=== PATIENT | male | born 1990 | race Caucasian/White ===

== ENCOUNTER 2018-06-06 07:10 | Emergency (ER) | payer BC, SELFPAY ==
[2018-06-06 07:11] VITALS: BP 153/96; PULSE 89; RESP 18; TEMP 36.5; O2SAT 98; BMI 31.5
--- NOTE | 2018-06-06 08:08 | CT_ITS ---
STUDY: CT BRAIN WITHOUT CONTRAST REASON FOR EXAM: Male, 28 years old. Dizziness and blurred vision. RADIATION DOSAGE (If Supplied By Facility): CTDIvol = ( 44.99 ) mGy, DLP = ( 796.11 ) mGycm TECHNIQUE: Transaxial CT imaging of the brain was performed without administration of intravenous contrast material. Individualized dose optimization techniques were used for this CT. COMPARISON: None. FINDINGS: Normal soft tissue structures. Normal calvarium. Normal size ventricles and extra-axial spaces for the patient's age. Normal white matter tracts of the cerebral hemispheres. Normal basal ganglia and thalami. Normal brainstem. Normal cerebellum. There is no intracranial hemorrhage. There are no findings of an acute ischemic infarction. Mucosal thickening of the ethmoid sinuses as well as the right maxillary sinus and sphenoid sinus. CT/Brain/Head without Contrast IMPRESSION: Sinusitis. Normal unenhanced CT scan of the brain. Electronically Signed: George Yancey MD at 9:10 EST , Service support ,
[2018-06-06] MEDS: 0.9% Normal Saline 1,000 ML 150 ML IV (08:58)
[2018-06-06 08:59] LABS: Absolute Lymphocyte Count 4.87 X10^3/ul (0.83-4.51); Absolute Neutrophil Count 6.5 X10^3/uL (2.0-7.7); Basophil# 0.03 X10^3/uL; Basophil% 0.2 % (0-1); Eosinophil# 0.19 X10^3/uL; Eosinophils% 1.5 % (0-5); Hematocrit 49.9 % (40-54); Hemoglobin 16.9 g/dl (13.0-16.5); Lymphocyte # 4.87 X10^3/ul (4.0); Lymphocyte % 38.4 % (19-41); Mean Corp Hgb Conc 33.9 g/gl (32-36); Mean Corpuscular Hgb 29.8 pg (27.0-32.0); Mean Platelet Vol. 9.6 fl (6.2-12.0); Monocyte# 1.01 X10^3/uL; Neutrophil # 6.53 X10^3/uL (2.7-7.7); Neutrophil % 51.5 % (47-70); POSITIVE COUNT NO; POSITIVE DIFFERENTIAL NO; POSITIVE MORPHOLOGY NO; Platelet Count 314 K/mm3 (150-450); RBC Distribution Width CV 12.7 % (11.6-14.6); RBC Distribution Width SD 41.3 fl (35.1-43.9); Red Blood Count 5.67 M/mm3 (4.6-6.2); White Blood Count 12.7 K/mm3 (4.4-11.0)
[2018-06-06 09:08] LABS: Anion Gap 8 (5-15); BUN 17 mg/dL (7-18); BUN/Creat Ratio 15.2 RATIO (10-20); Chloride 108 mmol/L (98-107); Creatinine, Serum 1.12 mg/dL (0.70-1.30); EST Glomerular Filtration Rate 82 mL/min (>60); Est Glom Filt Rate - Afr Amer 99 mL/min (>60); Estimated Creatinine Clearance 108.99 ml/min; Glucose 98 mg/dL (74-106); Magnesium 2.3 mg/dL (1.6-2.6); Potassium 3.8 mmol/L (3.5-5.1); Sodium Level 144 mmol/L (136-145)
[2018-06-06 09:13] VITALS: BP 138/93; BP 144/103; BP 146/107; BP 148/84; PULSE 84; PULSE 85; PULSE 86
--- NOTE | 2018-06-06 09:26 | ED.VISSUMM ---
- ER Visit Summary Date of Service: 06/06/18 Chief Complaint: [Dizziness and paresthesias] History of Present Illness: The patient is a 28 M [presents the emergency department complaint of dizziness and paresthesias that started 5 days ago. Patient states that he had an episode of some blurred vision 5 days ago and then his whole body can become numb and tingly that started in his toes and kind of worked up its way towards his head. She had some difficulty finding words and putting sentences together. Symptoms lasted about 2 hours and then resolved. Patient states he had similar episode about 6 months ago. Patient concerned that he had some intermittent numbness and tingling since the episode and at times is felt somewhat lightheaded or off balance. Patient had a mild headache at the time of the episode but none currently. He denies any fever or recent illness.] Physical Examination: [HEENT-PERRLA, EOMI. Cranial nerves II through XII grossly intact. TMs clear. Mucous membranes moist. No adenopathy. Cardiovascular-regular rate and rhythm without murmur or ectopy Lungs-clear to auscultation, chest wall stable without crepitus or subcu emphysema Abdomen-normoactive bowel sounds, soft, nontender, no rebound or rigidity, no peritoneal signs. Neuro witv-wxcfuw-gplv and heel mccormack testing within normal limits, negative Romberg, negative pronator drift, fundi benign. Deep tendon reflexes are plus 2 out of 4 bilaterally in the upper and lower extremities. Extremities-intact ?4, normal range of motion, normal pulses, atraumatic] Test Results: [CT scan of the brain without contrast was normal. CBC with differential showed a slightly elevated white blood cell count 12.7, hemoglobin 16.9, hematocrit 50, platelets 314. Chemistries unremarkable.] Emergency Department Course and Treatment: [Case was discussed with neurologist on-call Dr. Brett Patterson. At this point etiology of his dizziness and paresthesias is unclear although in the differential would be potentially anxiety versus complex migraine versus possibility of MS. I feel this can be further evaluated as an outpatient.] Treatment Plan: [Follow-up with neurology within next 3-5 days] Disposition: [Discharged home in stable condition] Impression: [Dizziness-etiology uncertain Paresthesias] This note was generated with [employer] software. It may contain incorrect words, spelling, and punctuation that were not noted in review of the chart prior to signing ED Disposition - Plan for ED Patient: Referrals: Care Physician,No Primary [Primary Care Provider] -
--- NOTE | 2018-06-06 09:28 | ED.DEP ---
ED Disposition - Plan for ED Patient: Instructions: ED Dizziness UKO, ED Paraesthesias Referrals: Care Physician,No Primary [Primary Care Provider] - Brett Patterson MD [STAFF PHYSICIAN] - 3-5 Days
--- NOTE | 2018-06-06 09:29 | ED.DCSUM_ITS ---
- ER Visit Summary Date of Service: 06/06/18 Chief Complaint: [Dizziness and paresthesias] History of Present Illness: The patient is a 28 M [presents the emergency department complaint of dizziness and paresthesias that started 5 days ago. Patient states that he had an episode of some blurred vision 5 days ago and then his whole body can become numb and tingly that started in his toes and kind of worked up its way towards his head. She had some difficulty finding words and putting sentences together. Symptoms lasted about 2 hours and then resolved. Patient states he had similar episode about 6 months ago. Patient concerned that he had some intermittent numbness and tingling since the episode and at times is felt somewhat lightheaded or off balance. Patient had a mild headache at the time of the episode but none currently. He denies any fever or recent illness.] Physical Examination: [HEENT-PERRLA, EOMI. Cranial nerves II through XII grossly intact. TMs clear. Mucous membranes moist. No adenopathy. Cardiovascular-regular rate and rhythm without murmur or ectopy Lungs-clear to auscultation, chest wall stable without crepitus or subcu emphysema Abdomen-normoactive bowel sounds, soft, nontender, no rebound or rigidity, no peritoneal signs. Neuro tckb-xuvwew-ukyn and heel mccormack testing within normal limits, negative Romberg, negative pronator drift, fundi benign. Deep tendon reflexes are plus 2 out of 4 bilaterally in the upper and lower extremities. Extremities-intact ?4, normal range of motion, normal pulses, atraumatic] Test Results: [CT scan of the brain without contrast was normal. CBC with differential showed a slightly elevated white blood cell count 12.7, hemoglobin 16.9, hematocrit 50, platelets 314. Chemistries unremarkable.] Emergency Department Course and Treatment: [Case was discussed with neurologist on-call Dr. Brett Patterson. At this point etiology of his dizziness and paresthesias is unclear although in the differential would be potentially anxiety versus complex migraine versus possibility of MS. I feel this can be further evaluated as an outpatient.] Treatment Plan: [Follow-up with neurology within next 3-5 days] Disposition: [Discharged home in stable condition] Impression: [Dizziness-etiology uncertain Paresthesias] This note was generated with [employer] software. It may contain incorrect words, spelling, and punctuation that were not noted in review of the chart prior to signing ED Disposition - Plan for ED Patient: Referrals: Care Physician,No Primary [Primary Care Provider] -
[2018-06-06 10:12] VITALS: PULSE 85; RESP 17; O2SAT 98
== END 2018-06-06 10:13 | disposition home or self-care (01) ==
LOC: ED 08:18
PROVIDERS: Emergency Provider Emergency Medicine
DX: R42 Dizziness and giddiness (principal); R20.2 Paresthesia of skin; Z72.0 Tobacco use
CPT/HCPCS: 70450; 80048; 83735; 85025; 96360; 99284; J7030